=== PATIENT | male | born 1990 | race Caucasian/White ===

== ENCOUNTER 2016-12-08 09:51 | Emergency (ER) | payer SELFPAY ==
[2016-12-08] MEDS ORDERED: Sodium Chloride 0.9% 1,000 ML IV ONE (10:03)
[2016-12-08] MEDS ORDERED: Sodium Chloride 0.9% 10 ML Syringe FLUSH PRN (10:03)
[2016-12-08] MEDS ORDERED: Sodium Chloride 0.9% 2.5 ML Syringe FLUSH PRN (10:03)
[2016-12-08] MEDS ORDERED: Succinylcholine 200 MG/10 ML MDV IV STA (10:16)
[2016-12-08] MEDS ORDERED: Rocuronium 50 MG/5 ML Vial IVPUSH ONE (10:16)
[2016-12-08] MEDS ORDERED: Etomidate 2 MG/ML 20 ML SDV IVPUSH ONE (10:16)
--- NOTE | 2016-12-08 10:20 | EDM.PDOC ---
ED HPI GENERAL MEDICAL PROBLEM - General Stated Complaint: INTOXICATED Time Seen by Provider: 12/08/16 10:01 - History of Present Illness INITIAL COMMENTS - FREE TEXT/NARRATIVE: HISTORY AND PHYSICAL: History of present illness: Patient 26-year-old white male presents with altered mental status found at the landing at the bottom of stairs he was combative transported by paramedics upon arrival remains with altered mental status combative he does not communicate clearly did not give us his name at times he's under profanities that have not been directed there were several pills found identified to be clonazepam on his gurney he was intubated for his altered mental status and expected clinical course shortly after arrival c-collar was applied. There is no further history at this point ,patient was given Narcan intranasally in the field with no response Review of systems: As per history of present illness and below otherwise all systems reviewed and negative. Past medical history: As per history of present illness and as reviewed below otherwise noncontributory. Surgical history: As per history of present illness and as reviewed below otherwise noncontributory. Social history: No reported history of drug or alcohol abuse. Family history: As per history of present illness and as reviewed below otherwise noncontributory. Physical exam: HEENT: Atraumatic, normocephalic, pupils reactive, negative for conjunctival pallor or scleral icterus, mucous membranes moist, throat clear, c-collar applied nontender, trachea midline. Lungs: Clear to auscultation, breath sounds equal bilaterally, chest nontender. Heart: S1S2, regular, negative for clicks, rubs, or JVD. Abdomen: Soft, nondistended, nontender. Negative for masses or hepatosplenomegaly. Negative for costovertebral tenderness. Pelvis: Stable nontender. Genitourinary: Deferred. Rectal: Deferred. Extremities: Atraumatic, negative for cords or calf pain. Neurovascular unremarkable. Neuro: Patient combative he is moving all extremities incoherently verbal does not consistently follow commands limited grossly nonfocal exam pupils remain 4 mm equal and react Diagnostics: CBC CMP PT/INR troponin urine drug screen EtOH ammonia level aspirin Tylenol level chest x-ray EKG CT brain CT C-spine Therapeutics: IV O2 monitor patient was intubated via RSI with an 8-zero ET tube there is good color metric change end-tidal CO2 chest x-ray remains pending NG tube Hancock catheter placed Impression: #1 altered mental status #2 observation status post possible trauma #3 rule out polysubstance abuse Definitive disposition and diagnosis as appropriate pending reevaluation and review of above. ED ROS GENERAL - Review of Systems Review Of Systems: ROS reveals no pertinent complaints other than HPI. ED EXAM, GENERAL - Physical Exam Exam: See Below (See dictation) Course - Orders/Labs/Meds Orders: Active Orders 24 hr Category Date Time Status Cardiac Monitoring [RC] . DIRECTED Care 12/08/16 10:02 Active EKG Documentation Completion [RC] STAT Care 12/08/16 10:02 Active Pulse Oximetry [RC] ASDIRECTED Care 12/08/16 10:02 Active Cervical Spine wo Cont [CT] Stat Exams 12/08/16 10:03 Ordered Chest 1V Frontal [CR] Stat Exams 12/08/16 10:03 Ordered Head wo Cont [CT] Stat Exams 12/08/16 10:03 Ordered ACETAMINOPHEN [CHEM] Stat Lab 12/08/16 10:05 Received AMMONIA VENOUS [CHEM] Stat Lab 12/08/16 10:05 Received BLOOD GAS ARTERIAL [BG] Stat Lab 12/08/16 10:05 Received CARBOXYHEMOGLOBIN [BG] Stat Lab 12/08/16 10:05 Received CBC WITH AUTO DIFF [HEME] Stat Lab 12/08/16 10:05 Received COMPREHENSIVE METABOLIC PN,CMP [CHEM] Stat Lab 12/08/16 10:05 Received DRUG SCREEN, URINE [URCHEM] Stat Lab 12/08/16 10:03 Uncollected ETHANOL BLOOD MEDICAL [CHEM] Stat Lab 12/08/16 10:05 Received INR,PT,PROTHROMBIN TIME [COAG] Stat Lab 12/08/16 10:05 Received SALICYLATE [CHEM] Stat Lab 12/08/16 10:05 Received TROPONIN I [CHEM] Stat Lab 12/08/16 10:05 Received UA W/MICROSCOPIC [URIN] Stat Lab 12/08/16 10:03 Uncollected Sodium Chloride 0.9% [Normal Saline] 1,000 ml Med 12/08/16 10:03 Active IV STAT Sodium Chloride 0.9% [Saline Flush] Med 12/08/16 10:03 Active 10 ml FLUSH ASDIRECTED PRN Sodium Chloride 0.9% [Saline Flush] Med 12/08/16 10:03 Active 2.5 ml FLUSH ASDIRECTED PRN Nasogastric Orogastric Tube Insertion [OM.PC] Stat Oth 12/08/16 10:02 Ordered Saline Lock Insert [OM.PC] Stat Oth 12/08/16 10:02 Ordered Medication Orders Sodium Chloride (Normal Saline) 1,000 mls @ 999 mls/hr IV STAT ONE Stop: 12/08/16 11:03 Sodium Chloride (Saline Flush) 10 ml FLUSH ASDIRECTED PRN PRN Reason: Keep Vein Open Sodium Chloride (Saline Flush) 2.5 ml FLUSH ASDIRECTED PRN PRN Reason: Keep Vein Open Meds: Medications Generic Name Dose Route Start Last Admin Trade Name Freq PRN Reason Stop Dose Admin Sodium Chloride 1,000 mls @ 999 mls/hr 12/08/16 10:03 Normal Saline IV 12/08/16 11:03 STAT ONE Sodium Chloride 10 ml 12/08/16 10:03 Saline Flush FLUSH ASDIRECTED PRN Keep Vein Open Sodium Chloride 2.5 ml 12/08/16 10:03 Saline Flush FLUSH ASDIRECTED PRN Keep Vein Open Departure - Departure Time of Disposition: 10:20 Disposition: DC/Tfer to Acute Hospital 02 Condition: undetermined Clinical Impression: Altered mental status, Trauma, Polysubstance abuse - Discharge Information - My Orders Last 24 Hours: My Active Orders 12/08/16 10:02 Cardiac Monitoring [RC] . DIRECTED EKG Documentation Completion [RC] STAT Pulse Oximetry [RC] ASDIRECTED Nasogastric Orogastric Tube Insertion [OM.PC] Stat Saline Lock Insert [OM.PC] Stat 12/08/16 10:03 Cervical Spine wo Cont [CT] Stat Chest 1V Frontal [CR] Stat Head wo Cont [CT] Stat DRUG SCREEN, URINE [URCHEM] Stat UA W/MICROSCOPIC [URIN] Stat Sodium Chloride 0.9% [Normal Saline] 1,000 ml IV STAT Sodium Chloride 0.9% [Saline Flush] 10 ml FLUSH ASDIRECTED PRN Sodium Chloride 0.9% [Saline Flush] 2.5 ml FLUSH ASDIRECTED PRN 12/08/16 10:05 ACETAMINOPHEN [CHEM] Stat AMMONIA VENOUS [CHEM] Stat BLOOD GAS ARTERIAL [BG] Stat CARBOXYHEMOGLOBIN [BG] Stat CBC WITH AUTO DIFF [HEME] Stat COMPREHENSIVE METABOLIC PN,CMP [CHEM] Stat ETHANOL BLOOD MEDICAL [CHEM] Stat INR,PT,PROTHROMBIN TIME [COAG] Stat SALICYLATE [CHEM] Stat TROPONIN I [CHEM] Stat - Assessment/Plan Last 24 Hours: My Active Orders 12/08/16 10:02 Cardiac Monitoring [RC] . DIRECTED EKG Documentation Completion [RC] STAT Pulse Oximetry [RC] ASDIRECTED Nasogastric Orogastric Tube Insertion [OM.PC] Stat Saline Lock Insert [OM.PC] Stat 12/08/16 10:03 Cervical Spine wo Cont [CT] Stat Chest 1V Frontal [CR] Stat Head wo Cont [CT] Stat DRUG SCREEN, URINE [URCHEM] Stat UA W/MICROSCOPIC [URIN] Stat Sodium Chloride 0.9% [Normal Saline] 1,000 ml IV STAT Sodium Chloride 0.9% [Saline Flush] 10 ml FLUSH ASDIRECTED PRN Sodium Chloride 0.9% [Saline Flush] 2.5 ml FLUSH ASDIRECTED PRN 12/08/16 10:05 ACETAMINOPHEN [CHEM] Stat AMMONIA VENOUS [CHEM] Stat BLOOD GAS ARTERIAL [BG] Stat CARBOXYHEMOGLOBIN [BG] Stat CBC WITH AUTO DIFF [HEME] Stat COMPREHENSIVE METABOLIC PN,CMP [CHEM] Stat ETHANOL BLOOD MEDICAL [CHEM] Stat INR,PT,PROTHROMBIN TIME [COAG] Stat SALICYLATE [CHEM] Stat TROPONIN I [CHEM] Stat
--- NOTE | 2016-12-08 10:29 | CR ---
EXAMINATION: Portable chest radiograph. HISTORY: Shortness of breath. FINDINGS: The trachea is midline. The cardiomediastinal silhouette is within normal limits. No pulmonary infil trates, effusions or pneumothorax. There is an endotracheal tube noted with tip at the level of the clavicles. An endogastric tube is noted with tip projecting below the diaphragm. Osseous structures appear unremarkable. IMPRESSION: No acute cardiopulmonary process.
[2016-12-08] MEDS ORDERED: Sodium Chloride 0.9% 1,000 ML IV SCH (10:30)
[2016-12-08 10:36] LABS: CHLORIDE,CL 107 mmol/L (98-110); SODIUM,NA 138 mmol/L (136-146)
[2016-12-08 10:40] VITALS: BP 127/80
[2016-12-08 10:42] LABS: ACETAMINOPHEN < 3.0 ug/mL
--- NOTE | 2016-12-08 10:55 | CT ---
EXAMINATION: Non contrast CT head. Coronal and sagittal reformats. HISTORY: Pain FINDINGS: No evidence of intra or extra axial hemorrhage, mass, midline shift, hydrocephalus or edema. The or bits and globes are symmetric. No hypoattenuation changes in the major vascular territories to suggest acute infarct. No abnormal intracranial calcifications are detected. No evidence of substantial vascular calcifications. The o rbits and globes are symmetric. Mucosal thickening is noted within the ethmoid air cells. There is a mucous retention cyst within th e right maxillary sinus. Moderate leftward deviation of the nasal septum. Partially visualized endot dejuan tube noted. Pituitary fossa appears unremarkable. Calvarium is intact. No evidence of skull fracture. IMPRESSION: No acute intracranial findings.
--- NOTE | 2016-12-08 10:58 | CT ---
EXAMINATION: CT cervical spine HISTORY: Pain COMPARISON: None TECHNIQUE: Axial CT images obtained through the cervical spine without contrast. Coronal and sagitta l reconstructions obtained. FINDINGS: The cervical spinal alignment appears grossly unremarkable. The vertebral body heights and disc spaces appear well-maintained. Bone mineralization is normal. No fracture or acute osseous abn ormality. There is an endotracheal tube noted with tip at the level of the clavicles. An endogastric tube is a lso noted. The lung apices are clear. IMPRESSION: No acute cervical spinal abnormality identified.
== END 2016-12-08 11:15 ==
LOC: MW.ED 09:51
DX: R41.82 Altered mental status, unspecified (principal); F19.10 Other psychoactive substance abuse, uncomplicated
CPT/HCPCS: 36600; 70450; 71010; 72125; 80053; 80305; 81001; 82140; 82375; 82803; 84484; 85025; 85610; 93005; 99285; G0480; J0330; 31500